=== PATIENT | female | born 1965 | race Caucasian/White ===

== ENCOUNTER 2022-06-01 03:24 | Inpatient (IN) | payer BC, MEDICARE, SELFPAY ==
[2022-06-01] VITALS (44 sets, daily range): BP systolic 98–137; BP diastolic 40–72; PULSE 62–86; RESP 15–25; TEMP 37–38.5; O2SAT 89–98
--- NOTE | 2022-06-01 | DI.RAD_ITS ---
Exam(s) XR PORTABLE CHEST AP EXAM: XR PORTABLE CHEST AP CLINICAL HISTORY: ?PNA TECHNIQUE: 2D digital imaging was performed of the chest. One image was obtained. An AP view was ob tained. COMPARISON: No exams were available for comparison FINDINGS: MEDIASTINUM: Normal. HEART: Normal. PULMONARY VASCULATURE: Normal. LUNGS: No focal consolidating infiltrates. Mild diffuse interstitial prominence. PLEURAL SPACE: No pleural effusion or pneumothorax. BONE:Within normal limits for the patient's age. OTHER FINDINGS:Normal. IMPRESSION: 1. Mild diffuse interstitial prominence. This can be seen with interstitial infection or edema. Ple ase correlate clinically. 2. No focal consolidating infiltrate. DATA REPOSITORY: RADIATION DOSE DELIVERED:
--- NOTE | 2022-06-01 03:21 | W.PM.HP.N ---
Date of service: 06/01/22 Time of Service: 03:21 Assessment and Plan Assessment and plan (1) DKA (diabetic ketoacidosis): Start date: 05/31/22 Status: Acute Assessment and plan: This is a 57-year-old lady with poorly controlled type 1 diabetes mellitus. She presented with DKA to an outside facility and transferred to this ICU for continued DKA protocol. She is responding slowly to IV hydration and IV insulin with anion gap closing and acidosis slowly resolving. Her fluids will be adjusted according to every 4 hour basic metabolic profile. Continue insulin weaning to subcutaneous insulin and mealtime coverage and then reinitiating basal insulin once patient stabilizes. Long-term she would do well with more education and better compliance but this has been problematic and prognosis is poor for change. She has a full code. (2) CAD (coronary artery disease), [place] coronary artery: Status: Chronic Assessment and plan: History of recent STEMI with no evidence of ischemia presently and negative troponins. Cardiac monitoring while in the hospital. Continue aspirin and Plavix. (3) HTN (hypertension): Status: Chronic Assessment and plan: Continue medical therapy monitoring and adjusting as needed during her hospital stay. She is on Benicar and metoprolol. History of Present Illness History of Present Illness Chief Complaint: Lethargy with nausea and vomiting Narrative: This is a 57-year-old female patient with uncontrolled diabetes mellitus as an outpatient seen at [facility] ED for 24 hours of nausea and vomiting of bilious material. She was not feeling well for several days prior to this onset and may or may not have been taking her insulin as directed. She has a history of noncompliance with her type 1 diabetes and recurrent DKA at least yearly. At the time I saw the patient she had been hydrated and on an insulin drip transferred from the outside facility. She is a full code. She never did have mental status changes or, with her DKA. Labs were trending in the right direction with DKA protocol. She offers no new complaints. The patient is very thin and type I diabetic with chronic weight loss. She does have a significant history of having had a STEMI with cardiac stenting in the spring 2021. Patient states that she did not have a heart attack though the STEMI indicates otherwise. She had a culprit LAD lesion which was stented November 05, 2021. She also has pulmonary nodules which are being followed and she does continue to smoke. She does have some COPD. Patient does have hypertension and echocardiogram in 2020 did reveal preserved left ventricular ejection fraction. Review of Systems Narrative: 13 point review of systems positive for poor weight gain chronically, poor dentition with retinopathy associated with diabetes, chronic respiratory symptoms with smoking and COPD but no recent hemoptysis though she has been followed for a pulmonary nodule. Otherwise review of systems unrevealing or stable. PFSH All Active Problems Discharge planning issues (Acute) DVT prophylaxis (Acute) Thrush (Acute) SIRS (systemic inflammatory response syndrome) (Acute) Dehydration (Acute) HTN (hypertension) (Chronic) CAD (coronary artery disease), [place] coronary artery (Chronic) DKA (diabetic ketoacidosis) (Acute) Medical History IDDM (insulin dependent diabetes mellitus) Noncompliance with medication regimen Social History Smoking/Tobacco Use Status: Current-Occasional Smoking risk assessment performed?: Yes Meds Allergies and Home Medications Allergies Allergy/AdvReac Type Severity Reaction Status Date / Time lisinopril AdvReac Mild Unverified 06/01/22 01:33 Home Medications Medication Instructions Recorded Confirmed Type acetaminophen 325 mg tablet 325 mg PO Q6H PRN PRN 06/01/22 06/01/22 History aspirin 81 mg capsule,delayed 81 mg PO DAILY 06/01/22 06/01/22 History release atorvastatin 80 mg tablet 80 mg PO DAILY 06/01/22 06/01/22 History clopidogrel 75 mg tablet 75 mg PO DAILY 06/01/22 06/01/22 History flash glucose scanning reader 06/01/22 06/01/22 History flash glucose sensor 06/01/22 06/01/22 History fluoxetine 20 mg capsule 20 mg PO DAILY 06/01/22 06/01/22 History glucagon 1 mg solution for 1 mg subcut Q20M PRN Hypoglycemia 06/01/22 06/01/22 History injection (Glucagon Emergency Kit) insulin glargine 100 unit/mL 15 unit subcut DAILY 06/01/22 06/01/22 History subcutaneous cartridge insulin lispro 100 unit/mL subcut QID 06/01/22 History subcutaneous pen (Humalog KwikPen (U-100) Insulin) insulin syringe-needle U-100 1 mL 06/01/22 06/01/22 History 25 gauge x 5/8 (BD Insulin Syringe) metoprolol succinate 25 mg 25 mg PO DAILY 06/01/22 06/01/22 History tablet,extended release 24 hr nitroglycerin 0.4 mg sublingual 0.4 mg sublingual Q5M PRN Chest 06/01/22 06/01/22 History tablet Pain olmesartan 20 mg tablet 20 mg PO DAILY 06/01/22 06/01/22 History olmesartan 20 mg tablet (Benicar) 30 mg PO DAILY 06/01/22 06/01/22 History pen needle,diabetic, disp unit 29 06/01/22 06/01/22 History gauge x 1/2, remover and disposal unit Exam Narrative Exam Narrative: General: Patient appears older than stated age, thin, lying in bed on her left side in the position and in no acute distress. She is alert and oriented least to person and place. HEENT: Normocephalic, eyes with pupils equal and react to light symmetrically, extraocular movement intact and sclera anicteric. Oropharynx with dry mucosa and essentially edentulous. Neck: Supple without JVD. Back: Stooped posture without CVA tenderness. Lungs: Bronchovesicular sounds diffusely with no focalizing rales or rhonchi. Heart: Regular rate and rhythm with no appreciable murmur or gallop. Breast: Exam deferred. Abdomen: Slightly protuberant but soft and nontender to palpation with no palpable hepatosplenomegaly. Bowel sounds positive but decreased in all quadrants. Genitalia/rectal: Exam deferred. Extremities: Without clubbing, cyanosis or pitting edema. Fair capillary refill. Skin: Pale, warm and dry. Neuro: Cranial nerves II through XII gross intact, no focalizing motor deficits and no tremor. Psych: Flattened affect with normal mood. No abnormal thought processes. Remote and recent memory intact. Results Labs Result diagrams: 06/01/22 05:55 06/01/22 10:10
[2022-06-01 03:39] LABS: BE (Venous) -7 mmol/L (-2-3); HCO3 (Venous) 19 mmol/L (23-28); O2 Sat (Venous) 83 %; TCO2 (Venous) 18 mmol/L (24-29); pCO2 (Venous) 36 mmHg (41-51); pH (Venous) 7.33 (7.31-7.41); pO2 (Venous) 45 mmHg
[2022-06-01] MEDS: Enoxaparin 40 MG/0.4 ML SYR SC (03:54)
[2022-06-01 03:59] LABS: Anion Gap 15.9 mmol/L (3-11); BUN 52 mg/dL (7-18); CO2 21.1 mmol/L (21.0-32.0); Calcium 8.8 mg/dL (8.5-10.1); Chloride 95 mmol/L (98-107); Estimated GFR 28.25 (mL/min/1.73m2); Potassium 4.9 mmol/L (3.5-5.1); Sodium 132 mmol/L (136-145)
[2022-06-01 04:01] LABS: Glucose 602 mg/dL (74-106)
[2022-06-01] MEDS: Lactated Ringers 1,000 ML 250 ML IV (04:14)
[2022-06-01] MEDS: INSULIN REGULAR IN 0.9 % NACL 100 UNIT/100 ML BAG 8 UNIT IV (04:15)
[2022-06-01] MEDS: POTASSIUM CHLORIDE/0.45% NACL 1,000 ML 150 MEQ IV (06:48)
[2022-06-01 07:02] LABS: Abs Immature Grans 0.09 10^3/uL (0.0-0.06); Absolute Basophil Count 0.02 10^3/uL (0.0-0.2); Absolute Lymphocyte Count 1.58 10^3/uL (1.2-3.4); Absolute Monocyte Count 0.98 10^3/uL (0.1-0.8); Basophils % 0.1; HCT 33.6 % (36.0-46.0); HGB 11.4 g/dL (11.2-15.7); Immature Grans % 0.6; MCHC 33.9 % (32.0-36.0); MCV 91 fL (80-95); MPV 10.5 fL (8.0-11.0); Monocytes % 6.2; Neutrophils % 83.1; Platelet Count 230 10^3/uL (130-400); RBC 3.68 10^6/uL (3.93-5.22); RDW 11.9 % (11.7-14.6); RDW-SD 40.2 fL; WBC 15.83 10^3/uL (4.4-10.8)
[2022-06-01 07:13] LABS: Absolute Neutrophil Count 13.15 10^3/uL (1.2-6.7)
[2022-06-01 07:22] LABS: Magnesium 1.7 mg/dL (1.8-2.4); PHOSPHORUS 4.1 mg/dL (2.6-4.7)
[2022-06-01 08:48] LABS: BE (Venous) 1 mmol/L (-2-3); HCO3 (Venous) 26 mmol/L (23-28); O2 Sat (Venous) 96 %; TCO2 (Venous) 24 mmol/L (24-29); pCO2 (Venous) 41 mmHg (41-51); pO2 (Venous) 71 mmHg
[2022-06-01 09:01] LABS: Anion Gap 5.8 mmol/L (3-11); BUN 49 mg/dL (7-18); CO2 27.2 mmol/L (21.0-32.0); CREATININE 1.7 mg/dL (0.55-1.02); Calcium 8.8 mg/dL (8.5-10.1); Chloride 100 mmol/L (98-107); Estimated GFR 34.33 (mL/min/1.73m2); Glucose 289 mg/dL (74-106); Potassium 4.2 mmol/L (3.5-5.1); Sodium 133 mmol/L (136-145)
--- NOTE | 2022-06-01 09:03 | W.PM.PROGNOT ---
Date of Service Date of service: 06/01/22 Time of Service: 09:03 Assessment and Plan Assessment and plan (1) DKA (diabetic ketoacidosis): Status: Acute Assessment and plan: Continue IVF, insulin drip, serial labs. Await am labs including a VBG. Will give lantus 10 units now. Check A1C. C/s diabetic education. Check procalcitonin to ensure there is no infectious trigger. (2) SIRS (systemic inflammatory response syndrome): Status: Acute Assessment and plan: Suspect this is due to DKA. No evidence of an acute infectious process at [facility], but we are checking procalcitonin to double check this. (3) CAD (coronary artery disease), [place] coronary artery: Status: Chronic Assessment and plan: No evidence of ACS at this time. Continue home therapy (confirming home meds). (4) HTN (hypertension): Status: Chronic Assessment and plan: Holding olmesartan until we know what her baseline kidney function is. If in [place], then would prefer to hold the ARB for now. (5) Dehydration: Status: Acute Assessment and plan: Continue IVF. (6) Thrush: Status: Acute Assessment and plan: Nystatin swish and swallow (7) IDDM (insulin dependent diabetes mellitus): Assessment and plan: As above. Check A1C. DM education. (8) Noncompliance with medication regimen: Assessment and plan: Would benefit form home health services on discharge. (9) DVT prophylaxis: Status: Acute Assessment and plan: SC enoxaparin (renally dosed) (10) Discharge planning issues: Status: Acute Assessment and plan: Full code Continues to require ICU. Continues to require hospitalization. Total Critical Care Time 45 minutes. Subjective Subjective Interval history since last seen: Ms Hollis stattiffany she is thirsty and hungry. She denies dizziness, chest pain, shortness of breath, nausea, abdominal pain or pain of any kind. She has difficulty telling me which insulins she takes. She first told nursing it was novolog 15 units she took in the morning + sliding scale. When I ask her about it more, and she continues to insist that it is novolog. When I mention lantus by name, she states it's lantus 15 units she takes in the morning. She cannot tell me what her sliding scale instructions are. Exam Narrative Exam Narrative: General: Pleasant middle-aged female who is A&Ox2 (does not know the year), appears in good spirits, comfortable in bed. HEENT: EOMI, dry MM, oral thrush Heart: RRR, tachycardic, no m/r/g Lungs: CTAB Abdomen: sot, nontender, nondistended Extremities: anterior ankle plaques not seen elsewhere in the body, likely due from friction. Preserved tactile sensation to B feet, no lesions on B feet. Objective Last Vital Signs Temp 37.4 C 06/01/22 04:00 Pulse 70 06/01/22 07:40 Resp 19 06/01/22 08:00 BP 118/53 L 06/01/22 07:40 Pulse Ox 94 06/01/22 08:00 Laboratory Results - last 24 hr 06/01/22 06/01/22 06/01/22 03:30 03:30 05:55 WBC 15.83 H RBC 3.68 L Hgb 11.4 Hct 33.6 L MCV 91 MCH 31.0 MCHC 33.9 RDW 11.9 Plt Count 230 MPV 10.5 Immature Gran % 0.6 Neutrophils % 83.1 Lymphocytes % 10.0 Monocytes % 6.2 Eosinophils % 0.0 Basophils % 0.1 Nucleated RBC % 0.0 Absolute Neutrophils 13.15 H Absolute Lymphocytes 1.58 Absolute Monocytes 0.98 H Absolute Eosinophils 0.00 Absolute Basophils 0.02 VBG pH 7.33 VBG pCO2 36 L VBG pO2 45 VBG HCO3 19 L VBG Total CO2 18 L VBG O2 Saturation 83 VBG Base Excess -7 L Sodium 132 L Potassium 4.9 Chloride 95 L Carbon Dioxide 21.1 Anion Gap 15.9 H BUN 52 H Creatinine 2.0 H Est GFR (CKD-EPI 2020) 28.25 Glucose 602 H* Calcium 8.8 Phosphorus Magnesium 06/01/22 06/01/22 05:55 08:41 WBC RBC Hgb Hct MCV MCH MCHC RDW Plt Count MPV Immature Gran % Neutrophils % Lymphocytes % Monocytes % Eosinophils % Basophils % Nucleated RBC % Absolute Neutrophils Absolute Lymphocytes Absolute Monocytes Absolute Eosinophils Absolute Basophils VBG pH 7.40 VBG pCO2 41 VBG pO2 71 VBG HCO3 26 VBG Total CO2 24 VBG O2 Saturation 96 VBG Base Excess 1 Sodium Potassium Chloride Carbon Dioxide Anion Gap BUN Creatinine Est GFR (CKD-EPI 2020) Glucose Calcium Phosphorus 4.1 Magnesium 1.7 L Multi-Disciplinary Checklist Lines/Tubes CENTRAL LINE: no ARTERIAL LINE: no MONTES: no ENDOTRACHEAL TUBE: no ICU Maintenance GLUCOSE 140-180mg/dL: no, Reason/Intervention: In DKA NUTRITION AT GOAL: no, Reason/Intervention: trialing clear liquids PRESSURE ULCER: no RESTRAINTS: no ANTIBIOTICS(if yes, consider Stewardship): No Social Issues FAMILY UPDATED: no, Reason/Intervention: will throughout the day PT/OT: no, Reason/Intervention: independent in the room GOALS/DISPOSITION/JEWEL BEARING POLISHER: no, CODE STATUS: Full Prophylaxis DVT PROPHYLAXIS: yes GI PROPHYLAXIS: no
--- NOTE | 2022-06-01 09:09 | PDOC.CMIN ---
- If Service Date Differs Date of service: 06/01/22 Time of Service: 09:09 Care Management Initial Assess REASON FOR HOSPITALIZATION:: DKA, CAD, HTN PAST MEDICAL HISTORY/PAST SURGICAL HISTORY:: All Active Problems (Updated 06/01/22 @ 03:34 by Cal Nance). HTN (hypertension) (Chronic). CAD (coronary artery disease), [place] coronary artery (Acute). DKA (diabetic ketoacidosis) (Acute) PREVIOUS FUNCTIONAL STATUS/SOCIAL/FAMILY SUPPORTS:: Halima lives in [facility] with her Javier. Her son Henry lives next door to her. He is her only child. Henry provides the majority of her transportation, although she drives occasionally. Halima is independant at baseline. CURRENT FUNCTIONAL STATUS:: Halima was lying in bed when CM met with her. She is accompanied by her Javier. Javier shares that Halima's PCP tried getting her a continuous glucose monitor, however her insurance hasn't covered the cost. ADVANCE DIRECTIVES:: None on file at [facility]. Per pt: [facility] is Javier Hollis, alt. is Henry Hollis. Has patient been provided with info about the portal/API?: Yes Did the patient sign up for the portal?: No CODE STATUS:: Full Code INSURANCE COVERAGE / FINANCIAL ISSUES:: . Medicare CURRENT HOME/COMMUNITY SERVICES/EQUIPMENT:: None PRIMARY CARE PHYSICIAN:: Jessi Keller POTENTIAL DISCHARGE NEEDS:: Pharmacy, follow up appointments, discharge plan of care. PATIENT/FAMILY EDUCATION NEEDS:: Review diabetic education and management. Review discharge instructions, limitations, medications and plan to follow up with community providers. Discuss ask me three. TRANSPORTATION:: Via private vehicle with family. PLAN:: Ken requires further medical workup and treatment. CM received Medical Records from ID PCP (Dr. Jeanette Keller) and ID Hospital records. [facility] Diabetic consult and education is recommended prior to discharge. Per MD, Halima may also need a continuous glucose monitor. CM LMOM for Bri. Halima declines a referral for [facility] RN services. Pt is encouraged to follow up with her community providers and discharge plan of care as prescribed. CM will continue to follow.
[2022-06-01] MEDS: Insulin Glargine 300 UNITS/3 ML PEN 10 UNITS SC (09:10)
[2022-06-01] MEDS: Clopidogrel 75 MG TAB PO (09:36)
[2022-06-01] MEDS: Nystatin 500000 UNITS/5 ML SUSP 5ML CUP PO ×4 (09:36→21:54)
[2022-06-01] MEDS: Aspirin E.C. 81 MG TABEC PO (09:36)
[2022-06-01] MEDS: FLUoxetine 20 MG CAP PO (09:37)
[2022-06-01] MEDS: MAGNESIUM SULFATE 2 GM/50 ML BAG IVPB (09:40)
[2022-06-01] MEDS: Normal Saline Flush 10 ML SYR (09:58)
[2022-06-01 10:28] LABS: BE (Venous) 1 mmol/L (-2-3); HCO3 (Venous) 25 mmol/L (23-28); O2 Sat (Venous) 86 %; TCO2 (Venous) 23 mmol/L (24-29); pCO2 (Venous) 42 mmHg (41-51); pH (Venous) 7.39 (7.31-7.41); pO2 (Venous) 48 mmHg
--- NOTE | 2022-06-01 10:35 | NUR.NOTE ---
Patient set up for independent care. When this fiction writer went into room to clean up hygiene items, patient said, I haven't cleaned up yet becasue I'm lazy. This fiction writer offered to freshen up water in basin since it was cold, patient refused and said she doesn't want to wash up because she Deserves to be lazy when she's sick. RN notified. Nursing Note:
[2022-06-01 11:11] LABS: Anion Gap 9.9 mmol/L (3-11); BUN 46 mg/dL (7-18); CO2 25.1 mmol/L (21.0-32.0); CREATININE 1.7 mg/dL (0.55-1.02); Calcium 9.1 mg/dL (8.5-10.1); Chloride 99 mmol/L (98-107); Estimated GFR 34.33 (mL/min/1.73m2); Glucose 208 mg/dL (74-106); Magnesium 1.8 mg/dL (1.8-2.4); Sodium 134 mmol/L (136-145)
[2022-06-01] MEDS: Insulin Aspart 300 UNITS/3 ML PEN SC ×5 (11:20→22:09)
--- NOTE | 2022-06-01 13:15 | TELEP.MEDR_ITS ---
Date of service: 06/01/22 [facility] All[facility]ies Allergies: lisinopril Adverse Reaction (Mild, Unverified 06/01/22 01:33) Interview Person Interviewed: * Patient and son (Henry) Quality Quality of Interview/Accuracy of Medication List: Fair Sources Sources used to compile medication list: [employer] Medication List, Retail Pharmacy and Patient List Changes made to Home Medication List: ADDITIONS: * None DELETIONS: * Duplicate olmesartan removed CHANGES: * None Additional Notes Additional Notes: * Henry was able to go over all the oral medications, however he was not sure of insulin doses. Henry reports that she manages her own insulin at home * Patient reports the humalog is a sliding scale QID, but she is unable to tell me if it's based of blood glucose or carb count (or both). She also reports her lantus dose is 6 units (up to 10 units) once daily, but later on in the conversation reports she takes 15 units daily. Of note, per discussion with [employer] employee, the lantus has not been filled since April of 2021 Recommended Changes Recommended Changes(reason for recommendation): * None Attestation: The home medication list is now updated to the best of my knowledge and is ready to be reconciled by the provider. Please contact the TelePharmacy Medication Reconciliation Pharmacist at for any questions.
[2022-06-01 14:04] LABS: BE (Venous) 1 mmol/L (-2-3); HCO3 (Venous) 26 mmol/L (23-28); O2 Sat (Venous) 81 %; TCO2 (Venous) 24 mmol/L (24-29); pCO2 (Venous) 45 mmHg (41-51); pH (Venous) 7.37 (7.31-7.41); pO2 (Venous) 45 mmHg
[2022-06-01 14:21] LABS: Anion Gap 7.4 mmol/L (3-11); BUN 44 mg/dL (7-18); CO2 26.6 mmol/L (21.0-32.0); CREATININE 1.6 mg/dL (0.55-1.02); Calcium 8.7 mg/dL (8.5-10.1); Chloride 98 mmol/L (98-107); Estimated GFR 36.92 (mL/min/1.73m2); Glucose 227 mg/dL (74-106); Magnesium 2.5 mg/dL (1.8-2.4); Potassium 4.8 mmol/L (3.5-5.1); Sodium 132 mmol/L (136-145)
[2022-06-01 14:45] LABS: Procalcitonin 1.4 ng/mL
[2022-06-01 14:50] LABS: Hemoglobin A1C 12.2 % (<5.7)
[2022-06-01] MEDS: Lactated Ringers 1,000 ML 75 ML IV (15:00)
[2022-06-01 18:14] LABS: BE (Venous) -3 mmol/L (-2-3); HCO3 (Venous) 23 mmol/L (23-28); O2 Sat (Venous) 88 %; TCO2 (Venous) 21 mmol/L (24-29); pCO2 (Venous) 39 mmHg (41-51); pH (Venous) 7.37 (7.31-7.41); pO2 (Venous) 54 mmHg
[2022-06-01 18:31] LABS: Anion Gap 12.9 mmol/L (3-11); BUN 48 mg/dL (7-18); CO2 22.1 mmol/L (21.0-32.0); CREATININE 1.5 mg/dL (0.55-1.02); Calcium 8.5 mg/dL (8.5-10.1); Chloride 98 mmol/L (98-107); Estimated GFR 39.89 (mL/min/1.73m2); Glucose 306 mg/dL (74-106); Magnesium 2.3 mg/dL (1.8-2.4); Potassium 4.9 mmol/L (3.5-5.1); Sodium 133 mmol/L (136-145)
--- NOTE | 2022-06-01 19:51 | DI.VRAD_ITS ---
PROCEDURE INFORMATION: Exam: XR Chest Exam date and time: 06/01/2022 6:50 PM Age: 57 years old Clinical indication: Other: ? Pna TECHNIQUE: Imaging protocol: Radiologic exam of the chest. Views: 1 view. COMPARISON: No relevant prior studies available. FINDINGS: Lungs: The bilateral lung collazo are hyperexpanded, which may be related to emphysema or normal variant. No evidence of significant consolidation. Prominent linear opacities in the bilateral lung collazo noted, which could represent mild interstitial infection or pulmonary edema. Pleural spaces: No pleural effusion. No pneumothorax. Heart/Mediastinum: No cardiomegaly. Bones/joints: Unremarkable. IMPRESSION: Prominent linear opacities , which may represent mild interstitial infection or mild interstitial pulmonary edema. No significant consolidation. Dictated and Authenticated by: Catarina Vasques MD. Ordering:RICHARD Motley MD
[2022-06-01] MEDS: PIPERACILLIN/TAZO 3.375 GM in Normal Saline 50 ML IVPB (20:43)
[2022-06-01] MEDS: Atorvastatin 40 MG TAB 80 MG PO (20:45)
[2022-06-01 21:27] LABS: Bilirubin Negative (Negative); Blood Trace-intact (Negative); Clarity Clear (Clear); Glucose 500 mg/dL (Negative); Ketones 40 mg/dL (Negative); Leukocyte Esterase Negative (Negative); Nitrite Negative (Negative); Specific Gravity 1.025 (1.005-1.025); Urobilinogen 0.2 EU/dL (Up TO 0.2); pH 5.5 (5-8)
[2022-06-01 21:47] LABS: Bacteria Few HPF (Negative); C & S Indicated? No; Crystals Negative HPF (Negative); Epithelial Cells Few HPF (Negative); Mucus Negative (Negative); RBC 0-2 HPF (0-2)
[2022-06-01] MEDS: Acetaminophen 325 MG TAB PO (21:53)
[2022-06-02] VITALS (39 sets, daily range): BP systolic 76–156; BP diastolic 30–97; PULSE 68–106; RESP 4–24; TEMP 37–37.7; O2SAT 82–95
--- NOTE | 2022-06-02 | DI.CT_ITS ---
Exam(s) CT CHEST/ABD/PEL W EXAM: CT CHEST/ABD/PEL W CLINICAL HISTORY: nausea/vomiting, fever TECHNIQUE: Imaging Protocol: Axial computed tomography images with coronal and sagittal reformatted images were created and reviewed CONTRAST MATERIAL: Intravenous: Omnipaque 350 contrast volume:70 mL Oral: No COMPARISON: CR,XR XR PORTABLE CHEST AP from 06/01/2022 FINDINGS: The examination is limited due to patient motion artifact. CHEST: Tracheobronchial tree: Patent where visualized. Pulmonary parenchyma: There is a 3.6 mm nodule in the right upper lobe. There are moderate size bila teral pleural effusions and subjacent infiltrates. These may represent atelectasis or pneumonia. Visualized thyroid gland: Unremarkable. Mediastinum and Corin: No dominant adenopathy or fluid collection. The esophagus is unremarkable. Pleura: No pneumothorax. Heart: The heart is not dilated. Moderate coronary artery calcification. No pericardial effusion. Pulmonary arteries: The pulmonary arteries are inadequately opacified for evaluation of pulmonary emb tila. Aorta: Thoracic aorta non-dilated. Atherosclerosis. Lymph nodes: Within normal limits. Soft tissues: Unremarkable. Bones:Within normal limits for the patient's age. ABDOMEN: Liver: Normal density. No measurable mass. Portal, Superior Mesenteric, and Splenic Veins: Unremarkable. Gallbladder and Biliary Tract: No radiodense calculus or dilation. Pancreas: Normal density, no abnormal calcifications or inflammatory process. Spleen: Normal. Adrenals: No masses seen. Kidneys: Normal size, contour and axis. No radiodense stones or obstructive uropathy. No masses seen. Abdominal Aorta: Abdominal portion non-dilated. Atherosclerosis. Bowel: No obstruction or bowel wall thickening. Evidence of appendicitis. Peritoneal Cavity: There is a small amount of pelvic ascites. No free air. Lymph Nodes: Within normal limits. Bones: Within normal limits for the patient's age. Soft Tissues: There is diffuse subcutaneous edema. PELVIS: Bladder: Symmetric distention, no gross wall thickening. Reproductive Organs: Unremarkable as visualized. Lymph Nodes: Within normal limits. Bones: Within normal limits. IMPRESSION: 1. There are moderate size bilateral pleural effusions with subjacent infiltrate which may represent atelectasis or pneumonia. 2. Mild amount of free pelvic fluid. 3. Generalized subcutaneous edema. 4. No other acute intra-abdominal or pelvic finding. RADIATION DOSE DELIVERED: 775.48mGy.cm Total DLP DATA REPOSITORY: All CT scans at this facility are submitted to the National Radiology Data Registry (NRDR) Dose Index Registry (DIR) with the [employer] (ACR). RADIATION OPTIMIZATION: All CT scans at this facility use at least one of these dose optimization te chniques: automated exposure control; mA and/or kV adjustment per patient size (includes targeted exa ms where dose is matched to clinical indication); or iterative reconstruction.
[2022-06-02] MEDS: PIPERACILLIN/TAZO 3.375 GM in Normal Saline 50 ML IVPB ×4 (02:45→19:32)
[2022-06-02] MEDS: Enoxaparin 30 MG/0.3 ML SYR SC (05:29)
[2022-06-02] MEDS: Lactated Ringers 1,000 ML 75 ML IV (05:29)
[2022-06-02] MEDS: Ondansetron 4 MG/2 ML VIAL IVP (05:35)
[2022-06-02] MEDS: Normal Saline 500 ML IV (06:40)
[2022-06-02 07:10] LABS: Abs Immature Grans 0.12 10^3/uL (0.0-0.06); Absolute Lymphocyte Count 1.13 10^3/uL (1.2-3.4); Absolute Neutrophil Count 16.45 10^3/uL (1.2-6.7); Basophils % 0.3; Eosinophils % 0.1; HCT 34.5 % (36.0-46.0); HGB 11.6 g/dL (11.2-15.7); Immature Grans % 0.6; MCH 30.8 pg (27.0-33.0); MCHC 33.6 % (32.0-36.0); MCV 92 fL (80-95); MPV 10.9 fL (8.0-11.0); Monocytes % 5.6; Neutrophils % 87.4; Platelet Count 223 10^3/uL (130-400); RBC 3.77 10^6/uL (3.93-5.22); RDW 12.7 % (11.7-14.6); RDW-SD 42.3 fL; WBC 18.82 10^3/uL (4.4-10.8)
[2022-06-02 07:18] LABS: Absolute Basophil Count 0.06 10^3/uL (0.0-0.2); Absolute Eosinophil Count 0.02 10^3/uL (0.0-0.7); Absolute Monocyte Count 1.05 10^3/uL (0.1-0.8)
[2022-06-02 07:31] LABS: Anion Gap 17.6 mmol/L (3-11); BUN 49 mg/dL (7-18); CO2 19.4 mmol/L (21.0-32.0); CREATININE 1.7 mg/dL (0.55-1.02); Calcium 8.9 mg/dL (8.5-10.1); Chloride 96 mmol/L (98-107); Estimated GFR 34.33 (mL/min/1.73m2); Magnesium 2.1 mg/dL (1.8-2.4); Potassium 5.4 mmol/L (3.5-5.1); Sodium 133 mmol/L (136-145)
[2022-06-02 07:38] LABS: Glucose 524 mg/dL (74-106)
[2022-06-02] MEDS: Lactated Ringers 1,000 ML 1000 ML IV (08:02)
[2022-06-02] MEDS: Aspirin E.C. 81 MG TABEC PO (08:06)
[2022-06-02] MEDS: Clopidogrel 75 MG TAB PO (08:06)
[2022-06-02] MEDS: FLUoxetine 20 MG CAP PO (08:06)
[2022-06-02 08:28] LABS: BE (Venous) -9 mmol/L (-2-3); HCO3 (Venous) 18 mmol/L (23-28); O2 Sat (Venous) 76 %; TCO2 (Venous) 17 mmol/L (24-29); pCO2 (Venous) 37 mmHg (41-51); pH (Venous) 7.28 (7.31-7.41); pO2 (Venous) 45 mmHg
--- NOTE | 2022-06-02 08:45 | W.PM.PROGNOT ---
Date of Service Date of service: 06/02/22 Time of Service: 08:45 Assessment and Plan Assessment and plan (1) DKA (diabetic ketoacidosis): Status: Acute Assessment and plan: Resolved yesterday morning but recurred again last night. Resume insulin gtt, Continue aggressive IVF, serial labs. Given worsening white count, abdominal pain, n/v, elevated procalcitonin, obtaining CT chest/abdomen/pelvis to ensure there is no infectious process which is triggering this. Continue empiric zosyn. A1C 12.2. DM education consulted but has not yet seen the patient. (2) SIRS (systemic inflammatory response syndrome): Status: Acute Assessment and plan: Procalcitonin elevated. Obtaining CT chest/abdomen/pelvis. Continue empiric zosyn. Blood cultures pending. (3) Epigastric pain: Status: Acute Assessment and plan: Check gastroccult. Add PPI. NPO. If gastroccult positive, would hold asa/plavix/chemical DVT ppx. (4) CAD (coronary artery disease), [place] coronary artery: Status: Chronic Assessment and plan: No evidence of ACS at this time. Continue home therapy (confirming home meds). (5) HTN (hypertension): Status: Chronic Assessment and plan: Holding olmesartan until we know what her baseline kidney function is. Actually, hypotensive at this time. (6) Dehydration: Status: Acute Assessment and plan: Continue IVF. Does appear to have some degree of TORO; I do not know her baseline Cr. (7) Thrush: Status: Acute Assessment and plan: Nystatin swish and swallow (8) IDDM (insulin dependent diabetes mellitus): Assessment and plan: As above. (9) Noncompliance with medication regimen: Assessment and plan: Would benefit form home health services on discharge. (10) DVT prophylaxis: Status: Acute Assessment and plan: SC enoxaparin (renally dosed) (11) Discharge planning issues: Status: Acute Assessment and plan: Full code Continues to require ICU. Continues to require hospitalization. Total Critical Care Time 45 minutes. Subjective Subjective Interval history since last seen: C/o epigastric pain. Brown flecks in emetic contents this morning. States had a dark BM yesterday. Nauseated still. Reports a nonproductive cough. Denies dizziness, CP, SOB. Still has a gallbladder. Exam Narrative Exam Narrative: General: Pleasant middle-aged female who is A&Ox2-3 (does not know the year), appears in good spirits, comfortable in bed. HEENT: EOMI, dry MM Heart: RRR, tachycardic, no m/r/g Lungs: CTAB Abdomen: soft, tender in epigastrium, nondistended Extremities: no edema BLEs Objective Last Vital Signs Temp 37.2 C 06/02/22 04:00 Pulse 78 06/02/22 04:01 Resp 11 L 06/02/22 04:01 BP 103/45 L 06/02/22 04:01 Pulse Ox 92 06/02/22 04:01 Laboratory Results - last 24 hr 06/01/22 06/01/22 06/01/22 08:41 08:41 10:10 WBC RBC Hgb Hct MCV MCH MCHC RDW Plt Count MPV Immature Gran % Neutrophils % Lymphocytes % Monocytes % Eosinophils % Basophils % Nucleated RBC % Absolute Neutrophils Absolute Lymphocytes Absolute Monocytes Absolute Eosinophils Absolute Basophils VBG pH 7.40 VBG pCO2 41 VBG pO2 71 VBG HCO3 26 VBG Total CO2 24 VBG O2 Saturation 96 VBG Base Excess 1 Sodium 133 L 134 L Potassium 4.2 4.0 Chloride 100 99 Carbon Dioxide 27.2 25.1 Anion Gap 5.8 9.9 BUN 49 H 46 H Creatinine 1.7 H 1.7 H Est GFR (CKD-EPI 2020) 34.33 34.33 Glucose 289 H 208 H Hemoglobin A1c Calcium 8.8 9.1 Magnesium 1.8 Procalcitonin Urine Color Urine Clarity Urine pH Ur Specific [place] Urine Protein Urine Ketones Urine Blood Urine Nitrite Urine Bilirubin Urine Urobilinogen Ur Leukocyte Esterase Urine RBC Urine WBC Ur Epithelial Cells Urine Crystals Urine Bacteria Urine Mucus Ur Culture Indicated? Urine Glucose Add-On Test Request 06/01/22 06/01/22 06/01/22 10:10 13:55 13:55 WBC RBC Hgb Hct MCV MCH MCHC RDW Plt Count MPV Immature Gran % Neutrophils % Lymphocytes % Monocytes % Eosinophils % Basophils % Nucleated RBC % Absolute Neutrophils Absolute Lymphocytes Absolute Monocytes Absolute Eosinophils Absolute Basophils VBG pH 7.39 7.37 VBG pCO2 42 45 VBG pO2 48 45 VBG HCO3 25 26 VBG Total CO2 23 L 24 VBG O2 Saturation 86 81 VBG Base Excess 1 1 Sodium 132 L Potassium 4.8 Chloride 98 Carbon Dioxide 26.6 Anion Gap 7.4 BUN 44 H Creatinine 1.6 H Est GFR (CKD-EPI 2020) 36.92 Glucose 227 H Hemoglobin A1c Calcium 8.7 Magnesium 2.5 H Procalcitonin Urine Color Urine Clarity Urine pH Ur Specific [place] Urine Protein Urine Ketones Urine Blood Urine Nitrite Urine Bilirubin Urine Urobilinogen Ur Leukocyte Esterase Urine RBC Urine WBC Ur Epithelial Cells Urine Crystals Urine Bacteria Urine Mucus Ur Culture Indicated? Urine Glucose Add-On Test Request 06/01/22 06/01/22 06/01/22 13:55 13:55 18:00 WBC RBC Hgb Hct MCV MCH MCHC RDW Plt Count MPV Immature Gran % Neutrophils % Lymphocytes % Monocytes % Eosinophils % Basophils % Nucleated RBC % Absolute Neutrophils Absolute Lymphocytes Absolute Monocytes Absolute Eosinophils Absolute Basophils VBG pH VBG pCO2 VBG pO2 VBG HCO3 VBG Total CO2 VBG O2 Saturation VBG Base Excess Sodium 133 L Potassium 4.9 Chloride 98 Carbon Dioxide 22.1 Anion Gap 12.9 H BUN 48 H Creatinine 1.5 H Est GFR (CKD-EPI 2020) 39.89 Glucose 306 H Hemoglobin A1c 12.2 H Calcium 8.5 Magnesium 2.3 Procalcitonin 1.4 Urine Color Urine Clarity Urine pH Ur Specific [place] Urine Protein Urine Ketones Urine Blood Urine Nitrite Urine Bilirubin Urine Urobilinogen Ur Leukocyte Esterase Urine RBC Urine WBC Ur Epithelial Cells Urine Crystals Urine Bacteria Urine Mucus Ur Culture Indicated? Urine Glucose Add-On Test Request 06/01/22 06/01/22 06/01/22 18:00 20:00 Unknown WBC RBC Hgb Hct MCV MCH MCHC RDW Plt Count MPV Immature Gran % Neutrophils % Lymphocytes % Monocytes % Eosinophils % Basophils % Nucleated RBC % Absolute Neutrophils Absolute Lymphocytes Absolute Monocytes Absolute Eosinophils Absolute Basophils VBG pH 7.37 VBG pCO2 39 L VBG pO2 54 VBG HCO3 23 VBG Total CO2 21 L VBG O2 Saturation 88 VBG Base Excess -3 L Sodium Potassium Chloride Carbon Dioxide Anion Gap BUN Creatinine Est GFR (CKD-EPI 2020) Glucose Hemoglobin A1c Calcium Magnesium Procalcitonin Urine Color Yellow Urine Clarity Clear Urine pH 5.5 Ur Specific [place] 1.025 Urine Protein Negative Urine Ketones 40 H Urine Blood Trace-intact H Urine Nitrite Negative Urine Bilirubin Negative Urine Urobilinogen 0.2 Ur Leukocyte Esterase Negative Urine RBC 0-2 Urine WBC 3-5 Ur Epithelial Cells Few Urine Crystals Negative Urine Bacteria Few Urine Mucus Negative Ur Culture Indicated? No Urine Glucose 500 H Add-On Test Request TNP 06/02/22 06/02/22 06/02/22 06:50 06:50 08:25 WBC 18.82 H RBC 3.77 L Hgb 11.6 Hct 34.5 L MCV 92 MCH 30.8 MCHC 33.6 RDW 12.7 Plt Count 223 MPV 10.9 Immature Gran % 0.6 Neutrophils % 87.4 Lymphocytes % 6.0 Monocytes % 5.6 Eosinophils % 0.1 Basophils % 0.3 Nucleated RBC % 0.0 Absolute Neutrophils 16.45 H Absolute Lymphocytes 1.13 L Absolute Monocytes 1.05 H Absolute Eosinophils 0.02 Absolute Basophils 0.06 VBG pH 7.28 L VBG pCO2 37 L VBG pO2 45 VBG HCO3 18 L VBG Total CO2 17 L VBG O2 Saturation 76 VBG Base Excess -9 L Sodium 133 L Potassium 5.4 H Chloride 96 L Carbon Dioxide 19.4 L Anion Gap 17.6 H BUN 49 H Creatinine 1.7 H Est GFR (CKD-EPI 2020) 34.33 Glucose 524 H* Hemoglobin A1c Calcium 8.9 Magnesium 2.1 Procalcitonin Urine Color Urine Clarity Urine pH Ur Specific [place] Urine Protein Urine Ketones Urine Blood Urine Nitrite Urine Bilirubin Urine Urobilinogen Ur Leukocyte Esterase Urine RBC Urine WBC Ur Epithelial Cells Urine Crystals Urine Bacteria Urine Mucus Ur Culture Indicated? Urine Glucose Add-On Test Request Objective Narrative Objective Narrative: CXR: Prominent linear opacities , which may represent mild interstitial infection or mild interstitial pulmonary edema. No significant consolidation. Multi-Disciplinary Checklist Lines/Tubes CENTRAL LINE: no ARTERIAL LINE: no MONTES: no ENDOTRACHEAL TUBE: no ICU Maintenance GLUCOSE 140-180mg/dL: no, Reason/Intervention: DKA recurred NUTRITION AT GOAL: no, Reason/Intervention: NPO - abdominal pain/n/v, DKA. PRESSURE ULCER: no RESTRAINTS: no ANTIBIOTICS(if yes, consider Stewardship): Yes Social Issues FAMILY UPDATED: no, Reason/Intervention: None at bedside at this time PT/OT: no, Reason/Intervention: independent in the room GOALS/DISPOSITION/MICE RAISER: yes CODE STATUS: Full Prophylaxis DVT PROPHYLAXIS: yes GI PROPHYLAXIS: yes, Indication: NPO
[2022-06-02] MEDS: Normal Saline Flush 10 ML SYR (09:03)
[2022-06-02] MEDS: Pantoprazole 40 MG VIAL IVP ×2 (09:03→19:31)
[2022-06-02] MEDS: INSULIN REGULAR IN 0.9 % NACL 100 UNIT/100 ML BAG IV (09:58)
[2022-06-02 10:19] LABS: BE (Venous) -12 mmol/L (-2-3); HCO3 (Venous) 16 mmol/L (23-28); O2 Sat (Venous) 62 %; TCO2 (Venous) 15 mmol/L (24-29); pCO2 (Venous) 35 mmHg (41-51); pH (Venous) 7.26 (7.31-7.41); pO2 (Venous) 36 mmHg
--- NOTE | 2022-06-02 10:21 | W.ANESVAS ---
Midline Placement Date Performed: 06/02/22 Procedure Time: 10:12 Requesting Provider: Tiesha Jain Procedure Location: Intensive Care Unit Sedation Given (Indicate Dose Given): No Sedation given Patient Mental Status: Awake Sterility: Hand Hygiene, Surgical Cap, Surgical Mask, Sterile Gloves, Sterile Drape/Sheet and Chlorhexidine Laterality: Left Insertion Site: Basilic Midline Device: PowerGlide Pro 20G Catheter Length: 10 cm Midline Procedure Procedure: 1% Lidocaine to skin and subcutaneous tissue with 25g needle and Catheter placed without resistance Dressing: [place] Applied Blood Return: Present Flushes: Easily Ultrasound: Sterile probe cover and gel used Ultrasound Image Saved?: Yes Number of Attempts (See previous attempts in note section): 1 Procedure Tolerated: No Complications Procedure Outcome: Successful Performed By: Femi Archer
[2022-06-02 10:34] LABS: Magnesium 2.2 mg/dL (1.8-2.4)
[2022-06-02 10:42] LABS: Anion Gap 23.2 mmol/L (3-11); BUN 52 mg/dL (7-18); CO2 17.8 mmol/L (21.0-32.0); CREATININE 1.8 mg/dL (0.55-1.02); Chloride 96 mmol/L (98-107); Estimated GFR 32.06 (mL/min/1.73m2); Potassium 5.6 mmol/L (3.5-5.1); Sodium 137 mmol/L (136-145)
[2022-06-02 10:45] LABS: Glucose 581 mg/dL (74-106)
[2022-06-02] MEDS: Normal Saline 1,000 ML 150 ML IV ×2 (12:31→18:25)
[2022-06-02] MEDS: Sucralfate 1 GM TAB PO ×2 (13:07→19:34)
[2022-06-02] MEDS: Nystatin 500000 UNITS/5 ML SUSP 5ML CUP PO ×2 (13:07→19:31)
[2022-06-02 14:23] LABS: BE (Venous) -6 mmol/L (-2-3); HCO3 (Venous) 21 mmol/L (23-28); O2 Sat (Venous) 87 %; TCO2 (Venous) 20 mmol/L (24-29); pCO2 (Venous) 41 mmHg (41-51); pO2 (Venous) 54 mmHg
[2022-06-02 14:44] LABS: Magnesium 2.2 mg/dL (1.8-2.4)
[2022-06-02 15:04] LABS: Anion Gap 15.2 mmol/L (3-11); BUN 51 mg/dL (7-18); CO2 21.8 mmol/L (21.0-32.0); CREATININE 1.8 mg/dL (0.55-1.02); Calcium 8.2 mg/dL (8.5-10.1); Chloride 102 mmol/L (98-107); Estimated GFR 32.06 (mL/min/1.73m2); Glucose 435 mg/dL (74-106); Potassium 5.3 mmol/L (3.5-5.1); Sodium 139 mmol/L (136-145)
[2022-06-02] MEDS: Omnipaque 350 MG/ML 100 ML BTL IJ (17:28)
[2022-06-02 18:28] LABS: BE (Venous) 1 mmol/L (-2-3); HCO3 (Venous) 26 mmol/L (23-28); O2 Sat (Venous) 98 %; TCO2 (Venous) 24 mmol/L (24-29); pCO2 (Venous) 43 mmHg (41-51); pH (Venous) 7.39 (7.31-7.41); pO2 (Venous) 90 mmHg
[2022-06-02 18:34] LABS: Magnesium 2.2 mg/dL (1.8-2.4)
--- NOTE | 2022-06-02 18:37 | DI.VRAD_ITS ---
PROCEDURE INFORMATION: Exam: CT Chest With Contrast; Diagnostic Exam date and time: 06/02/2022 5:40 PM Age: 57 years old Clinical indication: Fever and nausea and vomiting TECHNIQUE: Imaging protocol: Diagnostic computed tomography of the chest with contrast. 3D rendering (Not supervised by radiologist): MIP and/or 3D reconstructed images were created by the technologist. Total images: [id number] COMPARISON: XR PORTABLE CHEST AP 06/01/2022 6:50 PM FINDINGS: Lungs: Compressive atelectasis at both lung bases. Additional bibasilar discoid atelectasis. No endobronchial lesion. Pleural spaces: Mild sized bilateral pleural effusions. No associated pleural thickening. No pneumothorax. Heart: Significant coronary artery calcification. Lymph nodes: No mediastinal, hilar or axillary adenopathy. Vasculature: No filling defect in the central pulmonary arterial tree. No aortic aneurysm or dissection. Intraperitoneal space: Visualized upper abdomen is unremarkable. Bones/joints: Mild thoracic kyphosis. Soft tissues: Extrathoracic soft tissues are unremarkable. IMPRESSION: Bilateral pleural effusions with bibasilar atelectasis. Cannot exclude a component of basilar consolidation/pneumonia. PROCEDURE INFORMATION: Exam: CT Abdomen And Pelvis With Contrast Exam date and time: 06/02/2022 5:40 PM Age: 57 years old Clinical indication: Fever and nausea and vomiting TECHNIQUE: Imaging protocol: Computed tomography of the abdomen and pelvis with contrast. 3D rendering (Not supervised by radiologist): MIP and/or 3D reconstructed images were created by the technologist. COMPARISON: XR PORTABLE CHEST AP 06/01/2022 6:50 PM FINDINGS: Lungs: Lung bases are unremarkable. Liver: 1 cm cyst adjacent to the ligamentum teres. Liver otherwise homogeneously enhances. Gallbladder and bile ducts: No calcified stones, wall thickening or biliary dilatation. Pancreas: Mild pancreatic atrophy. No peripancreatic edema. Spleen: Homogeneously enhances. No splenomegaly. Adrenal glands: No adrenal nodule. Kidneys and ureters: Kidneys homogeneously enhance. No hydronephrosis. Stomach and bowel: Moderate fecal loading. No small or large bowel dilatation or wall thickening. Appendix: No evidence of appendicitis. Intraperitoneal space: No free intraperitoneal air. Mild amount of free fluid within the pelvis. Vasculature: No abdominal aortic aneurysm. Lymph nodes: No significant adenopathy. Urinary bladder: No definite bladder wall thickening. Reproductive: Unremarkable as visualized. Bones/joints: Unremarkable. Soft tissues: There is generalized subcutaneous edema. There is subcutaneous dependent fluid posteriorly. There is ill-defined soft tissue within right anterior abdominal wall with punctate calcifications possibly due to prior medicinal injections. IMPRESSION: 1. Mild amount of free pelvic fluid which is a nonspecific finding although could be seen with occult inflammation. 2. No other acute intra-abdominal finding. Dictated and Authenticated by: Alfonzo Asher MD. Ordering:RICHARD Motley MD
[2022-06-02 18:39] LABS: Anion Gap 5.5 mmol/L (3-11); BUN 47 mg/dL (7-18); CO2 28.5 mmol/L (21.0-32.0); CREATININE 1.6 mg/dL (0.55-1.02); Calcium 8.2 mg/dL (8.5-10.1); Chloride 106 mmol/L (98-107); Estimated GFR 36.92 (mL/min/1.73m2); Glucose 261 mg/dL (74-106); Sodium 140 mmol/L (136-145)
[2022-06-02 18:41] LABS: Potassium 5.2 mmol/L (3.5-5.1)
[2022-06-02] MEDS: Atorvastatin 40 MG TAB 80 MG PO (19:31)
[2022-06-02] MEDS: Docusate Sodium 100 MG CAP PO (19:35)
[2022-06-02] MEDS: DEXTROSE 5%-0.45% SALINE 1,000 ML 75 ML IV (21:02)
[2022-06-02 23:31] LABS: Anion Gap 5.7 mmol/L (3-11); BUN 41 mg/dL (7-18); CO2 30.3 mmol/L (21.0-32.0); CREATININE 1.5 mg/dL (0.55-1.02); Calcium 8.1 mg/dL (8.5-10.1); Chloride 107 mmol/L (98-107); Estimated GFR 39.89 (mL/min/1.73m2); Glucose 101 mg/dL (74-106); Magnesium 2.2 mg/dL (1.8-2.4); Potassium 3.5 mmol/L (3.5-5.1); Sodium 143 mmol/L (136-145)
[2022-06-02 23:50] LABS: BE (Venous) 3 mmol/L (-2-3); HCO3 (Venous) 27 mmol/L (23-28); O2 Sat (Venous) 96 %; TCO2 (Venous) 25 mmol/L (24-29); pCO2 (Venous) 40 mmHg (41-51); pH (Venous) 7.44 (7.31-7.41); pO2 (Venous) 71 mmHg
[2022-06-03] VITALS (32 sets, daily range): BP systolic 120–178; BP diastolic 40–85; PULSE 69–82; RESP 13–23; TEMP 36.9–37.6; O2SAT 81–96
[2022-06-03] MEDS: POTASSIUM CHLORIDE/0.9% NACL 1,000 ML 125 MEQ IV (00:45)
[2022-06-03] MEDS: Sucralfate 1 GM TAB PO ×4 (01:33→17:32)
[2022-06-03] MEDS: Nystatin 500000 UNITS/5 ML SUSP 5ML CUP PO ×6 (01:33→21:07)
[2022-06-03] MEDS: PIPERACILLIN/TAZO 3.375 GM in Normal Saline 50 ML IVPB ×4 (01:33→21:08)
[2022-06-03] MEDS: Normal Saline Flush 10 ML SYR (03:38)
[2022-06-03 04:05] LABS: BE (Venous) -4 mmol/L (-2-3); HCO3 (Venous) 22 mmol/L (23-28); O2 Sat (Venous) 91 %; TCO2 (Venous) 21 mmol/L (24-29); pCO2 (Venous) 43 mmHg (41-51); pH (Venous) 7.31 (7.31-7.41); pO2 (Venous) 62 mmHg
[2022-06-03 04:44] LABS: Anion Gap 13.2 mmol/L (3-11); BUN 39 mg/dL (7-18); CO2 22.8 mmol/L (21.0-32.0); CREATININE 1.4 mg/dL (0.55-1.02); Calcium 7.7 mg/dL (8.5-10.1); Chloride 106 mmol/L (98-107); Estimated GFR 43.34 (mL/min/1.73m2); Glucose 276 mg/dL (74-106); Potassium 3.7 mmol/L (3.5-5.1); Sodium 142 mmol/L (136-145)
[2022-06-03 04:45] LABS: Magnesium 1.9 mg/dL (1.8-2.4)
[2022-06-03 06:28] LABS: BE (Venous) 0 mmol/L (-2-3); HCO3 (Venous) 26 mmol/L (23-28); O2 Sat (Venous) 82 %; TCO2 (Venous) 24 mmol/L (24-29); pCO2 (Venous) 45 mmHg (41-51); pH (Venous) 7.36 (7.31-7.41); pO2 (Venous) 46 mmHg
[2022-06-03 06:30] LABS: Abs Immature Grans 0.07 10^3/uL (0.0-0.06); Absolute Basophil Count 0.02 10^3/uL (0.0-0.2); Absolute Lymphocyte Count 1.69 10^3/uL (1.2-3.4); Absolute Monocyte Count 0.95 10^3/uL (0.1-0.8); Basophils % 0.1; Eosinophils % 0.1; HCT 30.8 % (36.0-46.0); HGB 10.4 g/dL (11.2-15.7); Immature Grans % 0.5; Lymphocytes % 10.9; MCHC 33.8 % (32.0-36.0); MCV 92 fL (80-95); MPV 10.3 fL (8.0-11.0); Monocytes % 6.1; Neutrophils % 82.3; Platelet Count 192 10^3/uL (130-400); RBC 3.36 10^6/uL (3.93-5.22); RDW-SD 43.1 fL; WBC 15.55 10^3/uL (4.4-10.8)
[2022-06-03 06:31] LABS: Absolute Eosinophil Count 0.02 10^3/uL (0.0-0.7)
[2022-06-03] MEDS: Normal Saline Flush 10 ML SYR IVP ×5 (06:41→22:21)
[2022-06-03 06:50] LABS: Anion Gap 8.6 mmol/L (3-11); BUN 37 mg/dL (7-18); C-Reactive Protein 0.08 mg/dL (0.0-0.3); CO2 26.4 mmol/L (21.0-32.0); CREATININE 1.5 mg/dL (0.55-1.02); Calcium 7.8 mg/dL (8.5-10.1); Chloride 109 mmol/L (98-107); Estimated GFR 39.89 (mL/min/1.73m2); Glucose 194 mg/dL (74-106); Potassium 3.7 mmol/L (3.5-5.1); Sodium 144 mmol/L (136-145)
[2022-06-03] MEDS: Pantoprazole 40 MG VIAL IVP ×2 (07:53→21:08)
[2022-06-03] MEDS: FLUoxetine 20 MG CAP PO (08:35)
[2022-06-03] MEDS: Ondansetron 4 MG/2 ML VIAL IVP (08:35)
[2022-06-03] MEDS: POTASSIUM CHLORIDE/D5-0.45NACL 1,000 ML 75 MEQ IV (08:37)
[2022-06-03] MEDS: Insulin Glargine 300 UNITS/3 ML PEN 10 UNITS SC ×2 (09:38→21:10)
[2022-06-03] MEDS: Insulin Aspart 300 UNITS/3 ML PEN SC ×2 (12:39→17:32)
[2022-06-03 14:59] LABS: Anion Gap 7.8 mmol/L (3-11); BUN 32 mg/dL (7-18); CO2 26.2 mmol/L (21.0-32.0); CREATININE 1.4 mg/dL (0.55-1.02); Calcium 8.1 mg/dL (8.5-10.1); Chloride 107 mmol/L (98-107); Estimated GFR 43.34 (mL/min/1.73m2); Glucose 218 mg/dL (74-106); Potassium 4.4 mmol/L (3.5-5.1); Sodium 141 mmol/L (136-145)
--- NOTE | 2022-06-03 16:40 | W.PM.PROGNOT ---
Date of Service Date of service: 06/03/22 Time of Service: 16:41 Assessment and Plan Assessment and plan (1) DKA (diabetic ketoacidosis): Status: Acute Assessment and plan: Resolved morning of 06/01 but recurred again that night. Resumed insulin gtt, Continued aggressive IVF, serial labs. Anion gap has again closed and stopped insulin drip. Basal/bolus insulin; adjust as necessary. Diabetic/Heart healthy diet. Given worsening white count, abdominal pain, n/v, elevated procalcitonin, [id number] CT chest/abdomen/pelvis to ensure there is no infectious process which is triggering this. Findings of moderate size bilateral pleural effusions with subjacent infiltrate which may represent atelectasis or pneumonia.? Continue empiric zosyn. A1C 12.2. DM education consulted but has not yet seen the patient. (2) SIRS (systemic inflammatory response syndrome): Status: Acute Assessment and plan: Procalcitonin elevated. Bilateral pulmonary infiltrates. Continue empiric zosyn. Blood cultures pending. (3) Epigastric pain: Status: Acute Assessment and plan: + gastroccult. Add PPI. NPO. Held aspirin, plavix and chemical VTE prophylaxis. Plan to restart plavix in AM and possibly aspirin if HH stabel. (4) CAD (coronary artery disease), [place] coronary artery: Status: Chronic Assessment and plan: No evidence of ACS at this time. Continue home therapy (confirming home meds). (5) HTN (hypertension): Status: Chronic Assessment and plan: Holding olmesartan but likely restart in AM; creatinine 1.4. (6) Dehydration: Status: Acute Assessment and plan: No longer on IV hydration. (7) Thrush: Status: Acute Assessment and plan: Nystatin swish and swallow (8) IDDM (insulin dependent diabetes mellitus): Assessment and plan: As above. (9) Noncompliance with medication regimen: Assessment and plan: Would benefit form home health services on discharge. (10) DVT prophylaxis: Status: Acute Assessment and plan: SC enoxaparin (renally dosed) (11) Discharge planning issues: Status: Acute Assessment and plan: Full code Transfer back to [facility] status. Continues to require hospitalization. Subjective Subjective Patient reports: no new complaints, feels better and nausea (mild); denies diarrhea or vomiting Exam Narrative Exam Narrative: General: Pleasant middle-aged female sitting in recliner. Cooperative. HEENT: EOMI, sclera clear, dry mucous membs. Heart: RRR, No murmur Lungs: CTAB Abdomen: soft, mild tenderness in epigastrium, nondistended Extremities: no edema BLEs Objective Last Vital Signs Temp 37.1 C 06/03/22 14:00 Pulse 75 06/03/22 15:08 Resp 22 06/03/22 16:00 BP 143/64 H 06/03/22 15:08 Pulse Ox 81 L 06/03/22 16:00 Laboratory Results - last 24 hr 06/02/22 06/02/22 06/02/22 18:00 18:00 18:00 WBC RBC Hgb Hct MCV MCH MCHC RDW Plt Count MPV Immature Gran % Neutrophils % Lymphocytes % Monocytes % Eosinophils % Basophils % Nucleated RBC % Absolute Neutrophils Absolute Lymphocytes Absolute Monocytes Absolute Eosinophils Absolute Basophils VBG pH 7.39 VBG pCO2 43 VBG pO2 90 VBG HCO3 26 VBG Total CO2 24 VBG O2 Saturation 98 VBG Base Excess 1 Sodium 140 Potassium 5.2 H Chloride 106 Carbon Dioxide 28.5 Anion Gap 5.5 BUN 47 H Creatinine 1.6 H Est GFR (CKD-EPI 2020) 36.92 Glucose 261 H Calcium 8.2 L Magnesium 2.2 C-Reactive Protein Procalcitonin 06/02/22 06/02/22 06/02/22 22:40 22:40 23:45 WBC RBC Hgb Hct MCV MCH MCHC RDW Plt Count MPV Immature Gran % Neutrophils % Lymphocytes % Monocytes % Eosinophils % Basophils % Nucleated RBC % Absolute Neutrophils Absolute Lymphocytes Absolute Monocytes Absolute Eosinophils Absolute Basophils VBG pH 7.44 H VBG pCO2 40 L VBG pO2 71 VBG HCO3 27 VBG Total CO2 25 VBG O2 Saturation 96 VBG Base Excess 3 Sodium 143 Potassium 3.5 D Chloride 107 Carbon Dioxide 30.3 Anion Gap 5.7 BUN 41 H Creatinine 1.5 H Est GFR (CKD-EPI 2020) 39.89 Glucose 101 Calcium 8.1 L Magnesium 2.2 C-Reactive Protein Procalcitonin 06/03/22 06/03/22 06/03/22 03:45 03:45 03:45 WBC RBC Hgb Hct MCV MCH MCHC RDW Plt Count MPV Immature Gran % Neutrophils % Lymphocytes % Monocytes % Eosinophils % Basophils % Nucleated RBC % Absolute Neutrophils Absolute Lymphocytes Absolute Monocytes Absolute Eosinophils Absolute Basophils VBG pH 7.31 VBG pCO2 43 VBG pO2 62 VBG HCO3 22 L VBG Total CO2 21 L VBG O2 Saturation 91 VBG Base Excess -4 L Sodium 142 Potassium 3.7 Chloride 106 Carbon Dioxide 22.8 Anion Gap 13.2 H BUN 39 H Creatinine 1.4 H Est GFR (CKD-EPI 2020) 43.34 Glucose 276 H Calcium 7.7 L Magnesium 1.9 C-Reactive Protein Procalcitonin 06/03/22 06/03/22 06/03/22 06:18 06:18 06:18 WBC 15.55 H RBC 3.36 L Hgb 10.4 L Hct 30.8 L MCV 92 MCH 31.0 MCHC 33.8 RDW 13.0 Plt Count 192 MPV 10.3 Immature Gran % 0.5 Neutrophils % 82.3 Lymphocytes % 10.9 Monocytes % 6.1 Eosinophils % 0.1 Basophils % 0.1 Nucleated RBC % 0.0 Absolute Neutrophils 12.80 H Absolute Lymphocytes 1.69 Absolute Monocytes 0.95 H Absolute Eosinophils 0.02 Absolute Basophils 0.02 VBG pH VBG pCO2 VBG pO2 VBG HCO3 VBG Total CO2 VBG O2 Saturation VBG Base Excess Sodium 144 Potassium 3.7 Chloride 109 H Carbon Dioxide 26.4 Anion Gap 8.6 BUN 37 H Creatinine 1.5 H Est GFR (CKD-EPI 2020) 39.89 Glucose 194 H Calcium 7.8 L Magnesium 2.0 C-Reactive Protein 0.08 Procalcitonin 1.0 06/03/22 06/03/22 06/03/22 06:18 13:55 14:33 WBC RBC Hgb Hct MCV MCH MCHC RDW Plt Count MPV Immature Gran % Neutrophils % Lymphocytes % Monocytes % Eosinophils % Basophils % Nucleated RBC % Absolute Neutrophils Absolute Lymphocytes Absolute Monocytes Absolute Eosinophils Absolute Basophils VBG pH 7.36 VBG pCO2 45 VBG pO2 46 VBG HCO3 26 VBG Total CO2 24 VBG O2 Saturation 82 VBG Base Excess 0 Sodium Cancelled 141 Potassium Cancelled 4.4 Chloride Cancelled 107 Carbon Dioxide Cancelled 26.2 Anion Gap Cancelled 7.8 BUN Cancelled 32 H Creatinine Cancelled 1.4 H Est GFR (CKD-EPI 2020) Cancelled 43.34 Glucose Cancelled 218 H Calcium Cancelled 8.1 L Magnesium C-Reactive Protein Procalcitonin
[2022-06-03] MEDS: Normal Saline 500 ML 30 ML IV (18:02)
[2022-06-03] MEDS: Atorvastatin 40 MG TAB 80 MG PO (21:08)
--- NOTE | 2022-06-03 21:47 | NUR.NOTE ---
Nursing Note: Patient transferred from ICU to Med-Surg at 2130. Patient ambulated to new room with standy by assist of ICU nurse. Patient came with personal clothes, clogs, personal cell phone and insulin pens along with antibiotic pip/joshua IVPB running.
[2022-06-04] VITALS (8 sets, daily range): BP systolic 137–181; BP diastolic 52–75; PULSE 69–75; RESP 17–18; TEMP 37–37.6; O2SAT 92–95
[2022-06-04] MEDS: PIPERACILLIN/TAZO 3.375 GM in Normal Saline 50 ML IVPB ×4 (01:08→20:43)
[2022-06-04] MEDS: Sucralfate 1 GM TAB PO ×4 (01:09→17:50)
[2022-06-04] MEDS: Normal Saline Flush 10 ML SYR IVP ×4 (01:09→20:44)
[2022-06-04] MEDS: Nystatin 500000 UNITS/5 ML SUSP 5ML CUP PO ×5 (06:08→22:30)
[2022-06-04] MEDS: Pantoprazole 40 MG TABCR PO (07:59)
[2022-06-04] MEDS: FLUoxetine 20 MG CAP PO (07:59)
[2022-06-04 08:45] LABS: Anion Gap 4.6 mmol/L (3-11); BUN 22 mg/dL (7-18); CO2 30.4 mmol/L (21.0-32.0); Calcium 8.1 mg/dL (8.5-10.1); Chloride 106 mmol/L (98-107); Glucose 143 mg/dL (74-106); Potassium 3.3 mmol/L (3.5-5.1); Sodium 141 mmol/L (136-145)
--- NOTE | 2022-06-04 09:01 | PDOC.CMPRO ---
- If Service Date Differs Date of service: 06/04/22 Time of Service: 09:01 Care Management Progress Note S/O: Halima was sitting in her chair when CM met with her. She is alert, oriented and easy to engage in conversation. She had a diabetic consult today and received a continuous glucose monitor and education. Halima feels confident that this monitor will improve her compliance as she has not been willing to do finger sticks. A:57 year old female admitted to [facility] on 06/01/22 for DKA, CAD, HTN P: Anticipate, Halima will discharge home via private vehicle with family. Halima declines a referral for [facility] RN services. Pt is encouraged to follow up with her community providers and discharge plan of care as prescribed. CM will continue to follow.
[2022-06-04 09:02] LABS: Abs Immature Grans 0.03 10^3/uL (0.0-0.06); Absolute Basophil Count 0.02 10^3/uL (0.0-0.2); Absolute Eosinophil Count 0.14 10^3/uL (0.0-0.7); Absolute Lymphocyte Count 2.02 10^3/uL (1.2-3.4); Absolute Monocyte Count 0.77 10^3/uL (0.1-0.8); Absolute Neutrophil Count 6.95 10^3/uL (1.2-6.7); Basophils % 0.2; Eosinophils % 1.4; HCT 31.1 % (36.0-46.0); HGB 10.4 g/dL (11.2-15.7); Immature Grans % 0.3; Lymphocytes % 20.3; MCH 31.1 pg (27.0-33.0); MCHC 33.4 % (32.0-36.0); MCV 93 fL (80-95); MPV 10.8 fL (8.0-11.0); Monocytes % 7.8; Platelet Count 154 10^3/uL (130-400); RBC 3.34 10^6/uL (3.93-5.22); RDW 12.9 % (11.7-14.6); RDW-SD 44.1 fL; WBC 9.93 10^3/uL (4.4-10.8)
[2022-06-04] MEDS: Potassium Chloride 20 MEQ TABCR PO (11:29)
[2022-06-04] MEDS: Insulin Aspart 300 UNITS/3 ML PEN SC ×2 (11:53→16:57)
[2022-06-04] MEDS: Metoprolol CR 25 MG TABCR PO (13:00)
--- NOTE | 2022-06-04 14:36 | W.INDIABCONS ---
Date of service: 06/04/22 Time of Service: 14:36 Diabetes Inpatient Consult Reason for Visit: DM1 DESCRIPTION/ASSESSMENT: Met with Halima and her parents today. Halima lives in [place] and used to have a Dexcom 6 continuous glucose monitor until about 4 years ago. She stopped getting it as copay was > $500 per month. Has had Dm1 since age 14. Home DM meds: 15 u lantus AM, 6-8 units lispro at meals. Halima is knowledgeable on counting carbs and dosing her insulin, however she states that she has frequent hypoglycemia and wants to get a CGM that communicates with her for peace of mind. She attributes her elevated A1C (12.2%) due to insulin not absorbing properly due to hypertrophy at injection sites. Nursing has helped her identify better injection area for when she discharges home. INTERVENTION: Attempted to program her andriod with Dexcom G6 aamir- unsuccessful as Halima does not know her email- or how to check her email as her is more computer literate. Provided Halima with a G6 dexcom sensor/transmitter and provided instruction on how to attach. Once home, her son and can program her phone/aamir and CGM. PLAN: Halima to follow up with her PCP to get script for Dexcom 6 CGM and have it filled by a [facility]. Is eligible for a CGM as with Dm 1 and injects > 4 x daily. Halima to follow up with greeting card writer if needs additional resources or education. Time Spent in Nutritional Counseling and Treatment: 30 min
--- NOTE | 2022-06-04 19:46 | PGE_ITS ---
Date of Service Date of service: 06/04/22 Time of Service: 19:46 Assessment and Plan Assessment and plan (1) DKA (diabetic ketoacidosis): Status: Acute Assessment and plan: Now on basal/bolus insulin. Tolerating diet. A1C 12.2. DM education consulted. Her insurance does cover a continuous glucose monitor and this will be initiated. (2) SIRS (systemic inflammatory response syndrome): Status: Acute Assessment and plan: Procalcitonin mildly elevated, now trended downward. WBC count normalized. Bilateral pulmonary infiltrates. Continue empiric zosyn. Blood cultures pending. (3) Epigastric pain: Status: Acute Assessment and plan: + gastroccult. Add PPI. Held aspirin, plavix and chemical VTE prophylaxis. Plan to restart plavix and ASA in AM. (4) CAD (coronary artery disease), [place] coronary artery: Status: Chronic Assessment and plan: No evidence of ACS at this time. Continue home therapy (confirming home meds). (5) HTN (hypertension): Status: Chronic Assessment and plan: REstarted metoprolol and olmesartan. monitoring. (6) Thrush: Status: Acute Assessment and plan: Nystatin swish and swallow (7) IDDM (insulin dependent diabetes mellitus): Assessment and plan: As above. (8) Noncompliance with medication regimen: Assessment and plan: Would benefit form home health services on discharge. (9) DVT prophylaxis: Status: Acute Assessment and plan: SC enoxaparin (renally dosed) (10) Discharge planning issues: Status: Acute Assessment and plan: Full code Transfer back to med-surg status. Plan to d/c tomorrow. Subjective Subjective Patient reports: no new complaints, feels better and afebrile; denies diarrhea, nausea, vomiting or shortness of breath Exam Narrative Exam Narrative: General: Pleasant middle-aged female sitting in recliner. Cooperative. Eating meal. HEENT: EOMI, sclera clear, MMM Heart: RRR, No murmur Lungs: CTAB Abdomen: soft, mild tenderness in epigastrium, nondistended Extremities: no edema BLEs Objective Last Vital Signs Temp 37.5 C 06/04/22 15:16 Pulse 69 06/04/22 15:16 Resp 17 06/04/22 15:16 BP 155/72 H 06/04/22 15:16 Pulse Ox 95 06/04/22 15:16 Laboratory Results - last 24 hr 06/04/22 06/04/22 06:15 06:15 WBC 9.93 RBC 3.34 L Hgb 10.4 L Hct 31.1 L MCV 93 MCH 31.1 MCHC 33.4 RDW 12.9 Plt Count 154 MPV 10.8 Immature Gran % 0.3 Neutrophils % 70.0 Lymphocytes % 20.3 Monocytes % 7.8 Eosinophils % 1.4 Basophils % 0.2 Nucleated RBC % 0.0 Absolute Neutrophils 6.95 H Absolute Lymphocytes 2.02 Absolute Monocytes 0.77 Absolute Eosinophils 0.14 Absolute Basophils 0.02 Sodium 141 Potassium 3.3 L D Chloride 106 Carbon Dioxide 30.4 Anion Gap 4.6 BUN 22 H Creatinine 1.0 Est GFR (CKD-EPI 2020) 64.90 Glucose 143 H Calcium 8.1 L
[2022-06-04] MEDS: Atorvastatin 40 MG TAB 80 MG PO (20:44)
[2022-06-04] MEDS: Insulin Glargine 300 UNITS/3 ML PEN 15 UNITS SC (22:30)
[2022-06-05] MEDS: PIPERACILLIN/TAZO 3.375 GM in Normal Saline 50 ML IVPB ×2 (03:05→08:44)
[2022-06-05 03:24] VITALS: BP 138/61; PULSE 67; TEMP 36.5; O2SAT 20
[2022-06-05] MEDS: Normal Saline Flush 10 ML SYR IVP ×2 (06:04→08:47)
[2022-06-05 07:14] LABS: Anion Gap 5.8 mmol/L (3-11); BUN 16 mg/dL (7-18); CO2 29.2 mmol/L (21.0-32.0); CREATININE 0.9 mg/dL (0.55-1.02); Calcium 8.2 mg/dL (8.5-10.1); Chloride 105 mmol/L (98-107); Estimated GFR 73.64 (mL/min/1.73m2); Glucose 75 mg/dL (74-106); Potassium 3.5 mmol/L (3.5-5.1); Sodium 140 mmol/L (136-145)
[2022-06-05 07:35] VITALS: BP 173/94; PULSE 68; RESP 17; TEMP 37.1; O2SAT 97
[2022-06-05] MEDS: FLUoxetine 20 MG CAP PO (08:45)
[2022-06-05] MEDS: Clopidogrel 75 MG TAB PO (08:45)
[2022-06-05] MEDS: Pantoprazole 40 MG TABCR PO (08:45)
[2022-06-05] MEDS: Metoprolol CR 25 MG TABCR PO (08:45)
--- NOTE | 2022-06-05 09:05 | DSE_ITS ---
Date of service: 06/05/22 Time of Service: 09:06 DS: Diagnosis Discharge Diagnosis (1) DKA (diabetic ketoacidosis): Status: Acute Asessment and Plan: DKA treated and resolved. Restarted basal/bolus insulin. certified adapted physical educator met with patient. She was prescribed a continuous glucose monitor. This is now covered by her insurance. She had used one briefly in the past but insurance coverage was not affordable. Adherence to medical regimen and diet enforced. (2) SIRS (systemic inflammatory response syndrome): Status: Acute Asessment and Plan: WBC count and procalcitonin elevated at time of admission. Zosyn initiated. CT chest/abd/pelvis obtained. Moderate sized bilateral pleural effusions with adjacent infiltrates that may represent pneumonia vs atelectasis. She will finish a course of antibiotics with Augment. She is requiring no supplemental O2. (3) Epigastric pain: Status: Acute Asessment and Plan: Gastroccult was positive. PPI and carafate initiated. Plavix, ASA and chemical VTE prophylaxis held, then restart the day prior to discharge. Discharge on a 2 week course of famotidine 20mg BID. Report abd pain, emesis, hematemesis to PCP. (4) CAD (coronary artery disease), [place] coronary artery: Status: Chronic Asessment and Plan: No angina during this hospitalization. Cont ASA, BB. (5) HTN (hypertension): Status: Chronic Asessment and Plan: Cont metoprolol, Olmesartan (6) Thrush: Status: Acute Asessment and Plan: Resolved. (7) IDDM (insulin dependent diabetes mellitus): Asessment and Plan: See DKA Discharge Plan Disposition Patient Disposition: HOME Condition: Good Discharge Details Reason For Visit: DKA Admit Date/Time: 06/01/22 03:24 Admit Provider: Cal Nance Attending Provider: Cal Nance Primary Care Provider: [facility] Hospital Course: This is a 57-year-old? female patient with uncontrolled diabetes mellitus as an outpatient seen at [facility] ED for 24 hours of nausea and vomiting of bilious material.? She was not feeling well for several days prior to this onset and may or may not have been taking her insulin as directed.? She has a history of noncompliance with her type 1 diabetes and recurrent DKA at least yearly.? At the time of transfer to [facility] she had been hydrated and on an insulin drip. She is a full code.? She never did have mental status changes with her DKA.? Labs were trending in the right direction with DKA protocol.? She offered no new complaints.? She does have a significant history of having had a STEMI with cardiac stenting in the spring 2021.? Patient states that she did not have a heart attack though the STEMI indicates otherwise.? She had a culprit LAD lesion which was stented November 05, 2021.? She also has pulmonary nodules which are being followed and she does continue to smoke.? She does have some COPD.? Patient does have hypertension and echocardiogram in 2019 did reveal preserved left ventricular ejection fraction. See Diagnosis Follow up with PCP in 1-2 weeks. Home Meds and New Rx's Prescriptions: New Levemir FlexTouch U-100 Insuln 100 unit/mL (3 mL) insulin pen 25 unit subcut DAILY Qty: 3 0RF amoxicillin-pot clavulanate 875-125 mg tablet 1 tab PO BID Qty: 6 0RF Rx Instructions: First dose the night of 06/05/22 famotidine 20 mg tablet 20 mg PO BID Qty: 30 0RF Continued Glucagon Emergency Kit (human) 1 mg Recon Soln 1 mg subcut Q20M PRN (Reason: Hypoglycemia) insulin lispro [Humalog KwikPen Insulin] 100 unit/mL Insulin Pen See Rx Instructions .ROUTE .COMPLEX Rx Instructions: Sliding scale acetaminophen 325 mg Tablet 325 mg PO Q6H PRN PRN aspirin 81 mg Capsule,Delayed Release(Dr/Ec) 81 mg PO DAILY nitroglycerin 0.4 mg Tablet, Sublingual 0.4 mg sublingual Q5M PRN (Reason: Chest Pain) atorvastatin 80 mg Tablet 80 mg PO DAILY clopidogrel 75 mg Tablet 75 mg PO DAILY fluoxetine 20 mg Capsule 20 mg PO DAILY olmesartan [Benicar] 20 mg Tablet 30 mg PO DAILY Discontinued Lantus U-100 Insulin 100 unit/mL Cartridge 15 unit SUBCUT DAILY No Action (DME) pen needle,diabetic, disp unit 29 gauge x 1/2 Needle MISCELLANEOUS Rx Instructions: Quickpen brand #1 (DME) BD Insulin Syringe 1 mL 25 gauge x 5/8 Syringe MISCELLANEOUS (DME) flash glucose scanning reader Misc MISCELLANEOUS (DME) flash glucose sensor Kit MISCELLANEOUS metoprolol succinate 25 mg Tablet Extended Release 24 Hr 25 mg PO DAILY Discharge Instructions Instructions: Heart Healthy Diet (DC) Activity:: Activity as Tolerated Equipment/Supplies:: No Equipment Needed Diet:: Resume diabetic and heart healthy diet DS: Summary Time Spent with Patient providing and/or coordinating discharge services: Greater than 30 minutes Status at Discharge Functional status at discharge: independent ambulation Overall status at discharge: patient is back to baseline Mental Status: mental status grossly normal Speech and Movement: speech and movement normal Mood: congruent mood Affect: normal affect Exam Narrative Exam Narrative: General: Pleasant middle-aged female sitting in recliner. Cooperative. States she feels ready to go home. HEENT: EOMI, sclera clear, MMM Heart: RRR, No murmur Lungs: CTAB Abdomen: soft, mild tenderness in epigastrium, nondistended Extremities: no edema BLEs Psych Mental Status: mental status grossly normal Speech and Movement: speech and movement normal Mood: congruent mood Affect: normal affect DS: Data Vitals/I&O Vitals and I&O: Vital Signs Temperature 37.1 C 06/05/22 07:35 Temperature Source Tympanic 06/05/22 07:35 Pulse 68 06/05/22 07:35 Pulse Rhythm Regular 06/05/22 01:15 Pulse 78 06/03/22 17:00 Respiratory Rate 17 06/05/22 07:35 Respiratory Effort Non-Labored 06/05/22 01:15 Respiratory Depth Normal 06/05/22 01:15 Respiratory Pattern Normal 06/05/22 01:15 Blood Pressure 173/94 H 06/05/22 07:35 Blood Pressure Mean 102 06/03/22 21:30 Blood Pressure Position Right Lateral 06/03/22 14:00 Pulse Oximetry 97 06/05/22 07:35 Oxygen Delivery Method Room Air 06/05/22 07:35 Oxygen Flow Rate 0 06/05/22 07:35 Pain Level 0 06/04/22 23:30 Comment 06/05/22 07:35 Intake & Output 06/04/22 06/04/22 06/05/22 11:59 23:59 11:59 Intake Total 646 / 1006 360 / 1006 50 / 50 Balance 646 / 1006 360 / 1006 50 / 50 Weight 48.6 kg 47.9 kg Intake: IV 246 / 366 120 / 366 50 / 50 Oral 400 / 640 240 / 640 Other: Comment up independently to toilet Voiding Methods Toilet Data Completed and Pending Labs on day of discharge: Labs from last 24 hours 06/05/22 06:20 Sodium 140 Potassium 3.5 Chloride 105 Carbon Dioxide 29.2 Anion Gap 5.8 BUN 16 Creatinine 0.9 Est GFR (CKD-EPI 2020) 73.64 Glucose 75 Calcium 8.2 L Preliminary micro results at discharge 06/01/22 19:03 Blood Culture - Preliminary Blood NO GROWTH 72 HOURS 06/01/22 18:55 Blood Culture - Preliminary Blood NO GROWTH 72 HOURS PFSH All Active Problems Epigastric pain (Acute) Discharge planning issues (Acute) DVT prophylaxis (Acute) Thrush (Acute) SIRS (systemic inflammatory response syndrome) (Acute) Dehydration (Acute) HTN (hypertension) (Chronic) CAD (coronary artery disease), [place] coronary artery (Chronic) DKA (diabetic ketoacidosis) (Acute) Medical History IDDM (insulin dependent diabetes mellitus) Noncompliance with medication regimen Social History Smoking/Tobacco Use Status: Current-Occasional Smoking risk assessment performed?: Yes
--- NOTE | 2022-06-05 16:11 | CMDISCH_ITS ---
- If Service Date Differs Date of service: 06/05/22 Time of Service: 16:12 LACE Index Scoring Tool - Questions: Length of Stay (in days): 4 - 6 Acuity (Admit via E.D.?): Yes Comorbidities: Diabetes w/o Complication E.D. Visits: 1 - Answers: Total Score: 9 Risk of Readmission: Low Risk Care Management Discharge Reason for Hospitalization: DKA, CAD, HTN Discharge Plan: Halima will discharge home via private vehicle with family. Halima declines a referral for [facility] RN services. Pt is encouraged to follow up with her community providers and discharge plan of care as prescribed. Patient/Family Education Needs: Review discharge instructions, discuss Ask Me Three.
== END 2022-06-05 11:20 | disposition home or self-care (01) | DRG 637 ==
LOC: ICU 06-03 19:08 → MS 06-03 21:33
PROVIDERS: Family Medicine; Internal Medicine; Admitting Provider Family Medicine; PCP Family Medicine; Visit Provider Family Medicine
DX: E10.10 Type 1 diabetes mellitus with ketoacidosis without coma (principal); J18.9 Pneumonia, unspecified organism; B37.0 Candidal stomatitis; R65.10 Systemic inflammatory response syndrome (SIRS) of non-infectious origin without acute organ dysfunction; N17.9 Acute kidney failure, unspecified; J98.11 Atelectasis; J44.0 Chronic obstructive pulmonary disease with (acute) lower respiratory infection; I25.10 Atherosclerotic heart disease of native coronary artery without angina pectoris; I25.2 Old myocardial infarction; I10 Essential (primary) hypertension; Z91.14 Patient's other noncompliance with medication regimen; Z95.5 Presence of coronary angioplasty implant and graft; E10.319 Type 1 diabetes mellitus with unspecified diabetic retinopathy without macular edema; E86.0 Dehydration; R10.13 Epigastric pain; R05.8 Other specified cough; R91.8 Other nonspecific abnormal finding of lung field; F17.210 Nicotine dependence, cigarettes, uncomplicated
CPT/HCPCS: 36410; 36415; 36592; 74177; 80048; 82805; 84145; 87040; J1650; 71045; 71260; 81003; 81015; 83036; 83735; 84100; 85025; 86140; 99223; 99232; 99233; 99239; 99291; J2405; J2543; J3490